=== PATIENT | female | born 1985 | race Caucasian/White ===

== ENCOUNTER 2021-08-22 04:05 | Emergency (ER) | payer OTHER ==
[~2021-08-22 04:05] MED LIST: AUGMENTIN 875-1 EACH PO; CLARITIN10 MG PO; COLACE 100MG C100 MG PO; FLONASE 0.05% N16 GM
[2021-08-22] MEDS ORDERED: AMOXICILLIN500 MG PO (04:44)
== END 2021-08-22 05:30 | disposition home or self-care (01) ==
LOC: ER1 04:05
DX: K02.9 Dental caries, unspecified (principal); F17.200 Nicotine dependence, unspecified, uncomplicated; F19.10 Other psychoactive substance abuse, uncomplicated
CPT/HCPCS: 99283